=== PATIENT | male | born 1955 | race Caucasian/White ===

== ENCOUNTER 2023-02-07 11:34 | Day surgery (SDC) | payer MEDICARE ==
[~2023-02-07] VITALS: Ht 190.5 cm; Wt 104.0 kg
[2023-02-07] VITALS (7 sets, daily range): BP systolic 113–149; BP diastolic 67–84; PULSE 58–62; RESP 14–16; TEMP 98.3; O2SAT 93–97
[2023-02-07] MEDS ORDERED: NO HOME MEDS (12:00)
[2023-02-07] MEDS ORDERED: LIDOcaine 1%/PF 5ML 10 MG/ML VIAL SQ ONE (12:05)
== END 2023-02-07 13:55 | disposition home or self-care (01) ==
LOC: SSTAY O 11:34
PROVIDERS: ATTEND Radiology Diagnostic Radiology
DX: R59.0 Localized enlarged lymph nodes (principal); C85.15 Unspecified B-cell lymphoma, lymph nodes of inguinal region and lower limb
CPT/HCPCS: 38505; 76942; 88184; 88185